=== PATIENT | male | born 1940 | race Caucasian/White ===

== ENCOUNTER 2018-08-12 05:57 | Day surgery (SDC) | payer BC, MEDICARE ==
[2018-08-12] MEDS ORDERED: Dextrose 5%-Lactated Ringers 1,000 ML IV SCH (06:30)
[2018-08-12] MEDS ORDERED: ceFAZolin 2 GM in Premix Bag 1 BAG IV ONE (06:30)
[2018-08-12] MEDS ORDERED: Lidocaine 1% with EPINEPHrine 1:100,000 50 ML MDV ONE (06:31)
[2018-08-12] MEDS ORDERED: fentaNYL 100 MCG/2 ML SDV ONE (07:11)
[2018-08-12] MEDS ORDERED: Propofol 200 MG/20 ML SDV ONE (07:11)
[2018-08-12] MEDS ORDERED: Midazolam 1 MG/ML 2 ML SDV ONE (07:11)
[2018-08-12] MEDS ORDERED: Lidocaine 0.5% 50 ML SDV ONE (07:11)
[2018-08-12] MEDS ORDERED: Ketorolac 60 MG/2 ML SDV ONE (08:01)
[2018-08-12 09:23] VITALS: BP 121/50
--- NOTE | 2018-08-18 12:11 | OR ---
DATE OF PROCEDURE: 08/12/2018 PREOPERATIVE DIAGNOSIS: Left carpal tunnel syndrome. POSTOPERATIVE DIAGNOSES: 1. Left carpal tunnel syndrome. 2. Left subfascial wrist lipoma. OPERATIVE PROCEDURE: 1. Left carpal tunnel release (42552). 2. Excision of subfascial lipoma of left wrist (69489). ANESTHESIA: IV block plus sedation. PLASTIC EYE TECHNICIAN: PAS. Sharyn INDICATION FOR PROCEDURE: This is an 78-year-old presenting with bilateral carpal tunnel syndrome, recently diagnosed by means of EMG. The left side was more symptomatic, so we are going to proceed with a left carpal tunnel release initially. Potential risks including bleeding, infection, injury to the median nerve and/or its branches, possible incomplete relief of symptoms over time were reviewed, and the patient wishes to proceed. DETAILS OF PROCEDURE: The patient was taken to the operating room and after IV sedation was administered, an IV block was placed affecting the left forearm and hand and those areas were prepped and draped. A standard carpal tunnel incision was made and carried down through the skin and subcutaneous tissue. The transverse carpal ligament was then identified and divided maintaining his ulnar orientation to the underlying median nerve. The ligament was quite thick and did retract under tension upon its division. The underlying median nerve, otherwise, was intact. Within the carpal tunnel, there was also an elongated 3.5 cm lipoma present. This was excised in a somewhat piecemeal fashion and delivered from the field as well. At that point, the nerve appeared to be intact and no other problems were identified. The incision was closed with a 4-0 subdermal stitch along with a 5-0 Prolene skin stitch. Pressure dressing applied. The patient was taken to the recovery room in satisfactory condition. There were no evident complications. Meir Campoverde MD /[id number]
== END 2018-08-12 09:46 | disposition home or self-care (01) ==
LOC: JP.SDS 05:57
PROVIDERS: ATTEND Surgery
DX: G56.03 Carpal tunnel syndrome, bilateral upper limbs (principal); D17.79 Benign lipomatous neoplasm of other sites; I10 Essential (primary) hypertension; Z86.73 Personal history of transient ischemic attack (TIA), and cerebral infarction without residual deficits
CPT/HCPCS: 25073; 64721; 82962; J0690; J1885; J2250; J2704; J3010; J7042